=== PATIENT | female | born 1965 | race Caucasian/White ===

== ENCOUNTER 2023-01-30 13:52 | Outpatient (CLI) | payer OTHER, SELFPAY | END 2023-01-30 13:53 | disposition home or self-care (01) | LOC: AMB 01-31 11:35 | PROVIDERS: Visit Provider Internal Medicine | DX: K08.89 Other specified disorders of teeth and supporting structures (principal) ==

== ENCOUNTER 2023-12-16 14:45 | Outpatient (RCR) | payer OTHER, SELFPAY | END 2024-04-14 23:59 | disposition home or self-care (01) | PROVIDERS: Visit Provider Physician Assistant | DX: Z98.890 Other specified postprocedural states (principal); Z51.89 Encounter for other specified aftercare | CPT/HCPCS: 97110; 97162 ==

== ENCOUNTER 2025-07-08 11:54 | Emergency (ER) | payer OTHER, SELFPAY ==
--- OUTSIDE RECORDS SUMMARY | 2021-03-28 10:19 | XMS_ITS | Continuity of Care Document ---
Author Organization [facility] Address [address] [address] [place] [address] Phone Care Team Providers Care Park Maintenance Technician Name Role Phone Benjy Serna DO Unavailable Unavailable Allergies, Adverse Reactions, Alerts Substance Reaction Status Criticality tramadol Nausea/vomiting Active No Informati on Medications Medication Instructions Dosage Effective Dates (start - stop) Status Comments citalopram 20 mg tablet take 1 tablet by oral route every day 20 MG - Active Fish Oil 1,200 mg (144 mg-216 mg) capsule - Active Multi For Her 50 Plus 400 mcg-80 mcg capsule - Active Folic D3 3,775 unit-1 mg capsule take 1 capsule by oral route every day 1.00 capsule - Active esomeprazole magnesium 40 mg capsule,delayed release take 1 capsule by oral route every day 40 MG - Active Procedures Procedure Date Ugi Endo; W/bx 1/mx Level Iv-surg Path Gross/micro 21 Telephone E&M II 11-20 Min ERICK Advance Directives Directive Yes / No Effective Date File Name No Information Encounters Encounter Description Practice Location Reason(s) For Visit Diagnoses Date Provider Providers Copied on Encounter [facility], [address] [address], [place], [id number], [place] tel:[phone] [facility] No Information 1 Kareem Shell. [address], [place], [id number] , [place]. tel: [phone] [facility], [address] [address], [place], [id number], [place] tel:[phone] [facility] Hiatal herniaDysphagia, unspecifiedHeartb urnDiaphragmatic hernia without obstruction or gangrene 1 Yobani Olvera. [address], [place], [id number] , [place]. tel: [phone] Referring Provider: Referral Self, USE FOR SELF REFERRALS. Telephone E&M II 11-20 Min ERICK [facility], [address] [address], [place], [id number], [place] tel:[phone] [facility] GI Symptoms or Concerns (chief complaint) Pharyngoesophagea l dysphagiaChoking in adultNauseaGastro esophageal reflux disease, unspecified whether esophagitis present 1 Kareem Shell. [address], [place], [id number] , [place]. tel: [phone] Referring Provider: Referral Self, USE FOR SELF REFERRALS. [facility], [address] [address], [place], [id number], [place] tel:[phone] [facility] No Information 1 Jodi Pascal. [address], [place], [id number] , [place]. tel:[phone] Family History Family Member Type Diagnosis Age At Onset Son Problem (finding) Heartburn Immunizations Vaccine Date Status Comments SARS-COV-2 (COVID-19) vaccin e, mRNA, spike protein, LNP, preservative free, 100 mcg/0.5mL dose administered Note: [facility] bi-direct ional interface ; Source: Other Registry SARS-COV-2 (COVID-19) vaccin e, mRNA, spike protein, LNP, preservative free, 100 mcg/0.5mL dose administered Note: [facility] bi-direct ional interface ; Source: Other Registry tetanus toxoid, reduced diphtheria toxoid, and acellular pertussis vaccine, adsorbed administered Note: [facility] i-directional interface ; Source: Other Registry Payers Payer name Insurance type Covered libertarian ID Yolanda king(mitch) [employer] [id number] Social History Type Description Quantity Date Captured Comments Sex Female Smoking Status No Information Chief Complaint And Reason For Visit No Information Reason For Referral Reason For Referral No Information Plan Of Treatment Date Type Action Status Referral Ordered: EGD Appointment date/timeframe: 01/08/2021 ordered History Of Present Illness Encounter Date Complaint History Of Prese nt Illness GI Symptoms or Concerns This was a televisit appointment to which the patient agreed to prior to initiation of discussion. Patient was present by herself during the appointment. Total time spent with the patient including chart interview, discussion, and coordination of care was 19 minutes.This is a pleasant 55-year-old female who self-referred to [facility] for evaluation of longstanding history of acid reflux, nausea, and dysphagia with choking. Patient reports struggling with a working diagnosis of acid reflux since she was 17 years of age. She has typical symptoms of substernal burning as well as regurgitation of stomach contents. However, here in the last few months, symptoms have significantly worsened. She is now having episodes of nausea without vomiting that are worse and whenever present before. She is also having episodes of choking that can include choking on saliva as well as with eating. She feels like things are getting hung up or having difficulty in her throat area, c Functional Status Date Functional Assessmen t No Information Instructions Date Instruction Additional Infor colleen Hiatal Hernia Related to Hiata l hernia Assessments Type Assessment Date No Information Patient Care Teams Name Effective Dates (start - stop) Status Members No Information
[2025-07-08] VITALS (8 sets, daily range): BP systolic 149–186; BP diastolic 66–71; PULSE 47–52; RESP 4–35; TEMP 37; O2SAT 96–98; BMI 29.5
--- OUTSIDE RECORDS SUMMARY | 2025-07-08 11:57 | XMS_ITS | Encounter Summary ---
Author Organization [facility] Address [address] [place] [address] Care Team Providers Care Chocolatier Name Role Phone Cierra Pettit MD Primary Care Provider + Cierra Pettit MD Unavailable + Lara Dumont DPM, Podiatry /Foot and Ankle Surgery Unavailable Osman Ash MD Unavailable Lara Dumont DPM, Podiatry /Foot and Ankle Surgery Unavailable Jaime Ibarra PA-C Unavailable + 00 Cierra Pettit MD Unavailable + Jaime Ibarra PA-C Unavailable + 00 Jaime Ibarra PA-C Unavailable + 00 Cierra Pettit MD Unavailable + Jaime Ibarra PA-C Unavailable + 00 Reason for Visit * Reason Onset Date Comments Medication Question 09/18/2020 Citalopram Encounter Details Date Type Department Care Team (Late st Contact Info) Description 09/18/2020 [facility] [address] [address] [place] [address] [place] [address] Medication Question (Citalopram) Social History Tobacco Use Types Packs/Day Years Used Date Smoking Tobacco: Former Smokeless Tobacco: Never Alcohol Use Standard Drinks/Week Comments No 0 (1 standard drink = 0.6 oz pur e alcohol) PHQ-2 Answer Date Recorded PHQ-2 Score 0 08/24/2020 Comments No Sex and Gender Information Value Date Recorded Sex Assigned at Not on file Legal Sex Female 4:17 AM MINCING MACHINE OPERATOR Gender Identity Not on file Sexual Orientation Not on file COVID-19 Exposure Response Date Recorded In the last month, have you been in contact with someone who was confirmed or suspected to have Coronavirus / COVID-19? No / Unsure 08/30/2020 10:01 AM MINCING MACHINE OPERATOR documented as of this encounter Miscellaneous Notes * Telephone Encounter - Claire Byrd RN - 09/20/2020 12:56 PM CST [employer] message sent to patient. Claire Byrd RN ING MACHINE OPERATOR * Telephone Encounter - Cierra Pettit MD - 09/20/2020 10:23 AM MINCING MACHINE OPERATOR I need to see her every 6 months for med check. I can give her refills. Her wellness visit is free or I can do an Evisit in 6 months, which is very cheap. ING MACHINE OPERATOR * Telephone Encounter - Claire Byrd RN - 09/20/2020 10:08 AM CST Patient called back very unhappy about having to come back for yet another appointment in 3 months just to get her Citalopram refilled. She states that she was told by Dr. Pettit at her last phone visit on 08/24/2020 that she would refill her Citalopram for 1 year and she was good for another year.Patient states that she does not have any money and is debt with medical bills. Patient requesting refills of her Citalopram for [address] Pettit stated. Please review and advise. Please MyChart patient back. Claire Byrd RN ING MACHINE OPERATOR * Telephone Encounter - Cierra Pettit MD - 09/19/2020 11:25 AM MINCING MACHINE OPERATOR Will raise back to 40mg since I just saw her for an appt in Aug. She is due for her wellness visit in 3 months(which is a free appt), so I refilled it for 3 months. Please help set up appt if able. Thank you! ING MACHINE OPERATOR * Telephone Encounter - Khushi Mock RN - 09/18/2020 4:22 PM CST Please see my chart and advise. Khushi Mock RN on 09/18/2020 at 4:23 PM ING MACHINE OPERATOR documented in this encounter Plan of Treatment Not on file documented as of this encounter Visit Diagnoses Diagnosis Anxiety Anxiety state, unspecified documented in this encounter Additional Health Concerns Assessment Noted Time PHQ-9 Depression Total Score: 0 08/24/20 20 1:43 PM MINCING MACHINE OPERATOR documented as of this encounter Care Teams Chocolatier Relationship Specialty Start Date End Date Cierra Pettit MD PCP - General Family Practice 12/27/16 04/19/25 [place] [address] [place] [address] Assigned PCP 08/27/20 08/25/21 Lara Dumont, DPM, Podiatry/Foot and Ankle Surgery [address] [place] [address] Assigned Musculoskeletal Provider 09/03/20 12/26/20 [place] [address] [place] [address] Assigned Musculoskeletal Provider 12/27/20 02/10/21 Lara Dumont, DPM, Podiatry/Foot and Ankle Surgery [address] [place] [address] Assigned Musculoskeletal Provider 02/11/21 03/02/22 Jaime Ibarra PA-C [address] [place] [address] Assigned PCP 08/26/21 10/20/21 [place] [address] [place] [address] Assigned PCP 10/21/21 02/23/22 Jaime Ibarra PA-C [address] [place] [address] Assigned PCP 09/28/22 12/06/22 Jaime Ibarra PA-C [address] [place] [address] Assigned PCP 02/24/22 09/20/22 [place] [address] [place] [address] Assigned PCP 12/07/22 08/29/23 Jaime Ibarra PA-C [address] [place] [address] Assigned PCP 08/30/23 05/03/24 documented as of this encounter
--- OUTSIDE RECORDS SUMMARY | 2025-07-08 11:57 | XMS_ITS | Clinical Summary ---
Author Organization [place] Address [address] [place] [address] Care Team Providers Care Sludge Filtration Operator Name Role Phone Unavailable Primary Care Provider Unavailabl e Allergies Active Allergy Reactions Criticality Noted Date Comments Oxycodone Other (See Comments) 03/23/2021 vomiting Tramadol Other (See Comments) 01/24/2021 vomiting Medications vitamin D3 (CHOLECALCIFEROL ) 2000 units tablet Take 1 tablet by mouth daily Active Multiple Vitamins-Mineral s (MULTIVITAMIN GUMMIES WOMENS) CHEW Take 2 chew tab by mouth daily Active Carboxymethylcel lulose Sodium (REFRESH CELLUVISC OP) Apply 1 drop to eye every 3 hours as needed Active vitamin B complex with vitamin C (VITAMIN B COMPLEX) tablet Take 1 tablet by mouth daily Active esomeprazole (NEXIUM) [address] capsule TAKE 1 CAPSULE BY MOUTH EVERY DAY 1 Active aspirin (ASA) 325 MG EC tabletIndication s:History of total knee replacement, unspecified laterality Take 1 tablet (325 mg) by mouth daily 30 tablet 1 Active senna-docusate (SENOKOT-S/PERIC OLACE) 8.6-50 MG tabletIndication s:History of total knee replacement, unspecified laterality Take 1-2 tablets by mouth 2 times daily Take while on oral narcotics to prevent or treat constipation. 30 tablet 1 Active acetaminophen (TYLENOL) 325 MG tabletIndication s:History of total knee replacement, unspecified laterality Take 2 tablets (650 mg) by mouth every 4 hours as needed for other (mild pain) 100 tablet 1 Active HYDROmorphone (DILAUDID) 2 MG tabletIndication s:History of total knee replacement, unspecified laterality Take 1 tablet (2 mg) by mouth every 4 hours as needed for moderate to severe pain 50 tablet 1 Active ondansetron (ZOFRAN-ODT) 4 MG ODT tabIndications:S tatus post total left knee replacement Take 1 tablet (4 mg) by mouth every 6 hours as needed for nausea or vomiting 30 tablet 1 Active citalopram (CELEXA) 40 MG tabletIndication s:Anxiety Take 1 tablet (40 mg) by mouth daily 90 tablet 1 2 Active Active Problems Problem Noted Date Diagnosed Date S/P total knee arthroplasty 04/09/2021 Moderate major depression 03/19/2021 SSS (sick sinus syndrome) 03/19/2021 Gastroesophageal reflux dise ase, esophagitis presence not specified 01/27/2020 Overview (07/17/2020): IMO Regulatory Load JUL 2020 Post menopausal syndrome 01/18/2019 Lateral epicondylitis of left elbow 06/10/2018 Takotsubo cardiomyopathy 03/26/2018 Dry eyes 02/09/2018 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 11/11/2017 Anxiety 03/11/2017 Chronic pain of both knees 12/30/2016 Pain of both elbows 12/30/2016 NSTEMI (non-ST elevated myocardial infarction) Stress-induced cardiomyopathy Chest pain Sinus bradycardia Resolved Problems Problem Noted Date Diagnosed Date Resolved Date Left elbow pain 06/10/2018 03/15/2019 ACS (acute coronary syndrome) 03/18/2018 03/20/2018 Varicose veins of left lower extremity 12/30/2016 11/11/2017 Tobacco use disorder 12/30/2016 018 Immunizations Immunization Administration Dates Next Due COVID-19 Monovalent 18+ (Moderna) 11/23/2020, TDAP Vaccine (Adacel) 07/12/2013 Family History Medical History Relation Comments Anemia Daughter Anxiety Disorder Daughter Hypertension Father Coronary Artery Disease Maternal Grandfather Heart Disease Maternal Grandfather Cancer Maternal Grandmother Cancer Mother lung Hypertension Mother Relation Status Comments Brother 1 Alive Brother 2 Alive Brother 3 Alive Daughter Alive Father CEREBRAL BRAIN B LEED Maternal Grandfather Maternal Grandmother LUNG Mother LUNG Paternal Grandfather Paternal Grandmother Sister Alive Son Alive Social History Tobacco Use Types Packs/Day Years Used Date Smoking Tobacco: Former Cigarettes Smokeless Tobacco: Never Tobacco Cessation:Counseling Given: Yes Comments:quit 2016 Alcohol Use Standard Drinks/Week Comments No 0 (1 standard drink = 0.6 oz pur e alcohol) none since 2015 PHQ-2 Answer Date Recorded PHQ-2 Score 0 08/24/2020 Adolescent Education Answer Date Record ed Getting School Help Needed Not on file 07/29 Comments No Sex and Gender Information Value Date Recorded Sex Assigned at Not on file Legal Sex Female 4:17 AM MACHINE BINDING FOLDER Gender Identity Not on file Sexual Orientation Not on file Last Filed Vital Signs Vital Sign Reading Time Taken Comments Blood Pressure 133/74 05/04/2021 2:13 PM CDT Pulse 62 05/04/2021 2:13 PM CDT Temperature 36.4 C (97.5 F) 05/04/2021 2:13 PM CDT Respiratory Rate 18 05/04/2021 2:13 PM CDT Oxygen Saturation 98% 05/04/2021 2:13 PM CDT Inhaled Oxygen Concentration - - Weight 76.2 kg (168 lb) 04/09/2021 5:47 AM CDT Height 167.6 cm (5' 6) 04/09/2021 5:47 AM CDT Body Mass Index 27.12 04/09/2021 5:47 AM CDT Plan of Treatment Health Maintenance Due Date Last Done Comments CT COLONOGRAPHY 1965 FIT 1965 FLEX SIG 1965 sDNA (Cologuard) 1965 HEPATITIS B VACCINE (1 of 3 - 19+ 3-dose series) 1985 LUNG CANCER SCREENING 2016 PNEUMOCOCCAL VACCINE 50+ YEARS (1 of 1 - PCV) 2016 ZOSTER VACCINE (1 of 2) 2016 YEARLY PREVENTIVE VISIT 08/10/2019 08/10/2018, 08/04 PAP 08/04/2020 08/04/2017 MAMMO SCREENING 08/21/2020 08/21/2018 ANNUAL REVIEW OF HM ORDERS 03/19/2022 03/19/2021 DTAP/TDAP/TD VACCINE (2 - Td or Tdap) 07/12/2023 07/12/2013 LIPID 08/10/2023 08/10/2018, 06/04/2018, 08/04/2017 DIABETES SCREENING 04/10/2024 04/10/2021, 0 03/19/2021, 03/19/2021, Additional history exists COVID-19 VACCINE ( season) 2025 08/20/2021, 11/23/2020, 10/26/2020 INFLUENZA VACCINE (#1) 2025 (Declined), 08/10/2018 (Declined) ADVANCE CARE PLANNING 03/19/2026 03/19/2021 COLONOSCOPY 08/22/2027 08/22/2017, 08/22/2017 COLORECTAL CANCER SCREENING 08/22/2027 HEPATITIS C SCREENING Completed 09/14/2018 HIV SCREENING Completed 09/14/2018 HPV VACCINE (No Doses Required) Completed MENINGITIS VACCINE Aged Out No longer eligible based on patient's age to complete this topic Medical Devices Implanted Type Area Retail Analytics Manager Device Identifier Shelf Expiration Date Model / Serial / Lot Bone Cement Simplex Full Dose 6191-1-001 - [id number] Implanted:Qty: 1 on 04/09/2021 by Edd Lopez MD at [employer] Cement, Bone Left: Knee [employer] 07/12/2022 6191-1-00 1 / / [id number] Imp Comp Fem Zim Psn Ps Cmt Narrow Sz 8 Lt [id number] - [id number] Implanted:Qty: 1 on 04/09/2021 by Edd Lopez MD at [employer] Total Joint Component /Insert Left: Knee [employer] 03/12/2030 42-5000-0 64-01 / / [id number] Imp Patella Zim Knee All Saniya 32mm [id number] - [id number] Implanted:Qty: 1 on 04/09/2021 by Edd Lopez MD at [employer] Total Joint Component /Insert Left: Knee [employer] 01/23/2029 42-5400-0 00-32 / [id number] Imp Tibial Zim Psn Building Official Stm 5deg Sz El [id number] - [id number] Implanted:Qty: 1 on 04/09/2021 by Edd Lopez MD at [employer] Total Joint Component /Insert Left: Knee [employer] 09/30/2030 [id number] 71- / [id number] Persona Vivacet-E Highly Crosslinked Polyethylene Articular Surface Fixed Bearing Ps Left 10mm Implanted:Qty: 1 on 04/09/2021 by Edd Lopez MD at [employer] Left: Knee [employer]Y 10/26/2025 [id number] 007- [id number] Procedures Procedure Name Priority Date/Time Associated Diagnosis Comments GLUCOSE Timed 04/10/2021 6:10 AM CDT History of total knee replacement, unspecified laterality HIV ANTIGEN ANTIBODY COMBO Routine 09/14/2018 10:44 AM MACHINE BINDING FOLDER Screen for STD (sexually transmitted disease) HEPATITIS C ANTIBODY Routine 09/14/2018 10:44 AM MACHINE BINDING FOLDER Screen for STD (sexually transmitted disease) MA SCREENING BILATERAL W/ JIMMIE Routine 08/21/2018 10:26 AM MACHINE BINDING FOLDER Visit for screening mammogram LIPID REFLEX TO DIRECT LDL PANEL Routine 08/10/2018 12:09 PM CDT Routine general medical examination at a health care facility COLONOSCOPY Routine 08/22/2017 8:52 AM MACHINE BINDING FOLDER PAP IMAGED THIN LAYER SCREEN Routine 08/04/2017 9:38 AM CDT Screening for malignant neoplasm of cervix from Last 3 Months or Most Recently Relevant to Health Maintenance Results * Glucose (04/10/2021 6:10 AM CDT) Glucose 91 70 - 99 mg/dL 04/10/2021 6:47 AM CDT [facility] Blood 04/10/2021 6:10 AM CDT 04/10/2021 6:11 AM CDT us Edd Lopez MD LAB - BLOOD ORDERABLES F inal Result [facility] [address] [phone] * HIV Antigen Antibody Combo (09/14/2018 10:44 AM MACHINE BINDING FOLDER) HIV Antigen Antibody Combo Nonreactive NR^Nonrea ctive 09/15/2018 12:59 PM MACHINE BINDING FOLDER [facility] Comment:HIV-1 p24 Ag & HIV-1 /HIV-2 Ab Not Detected Blood specimen (specimen) 09/14/2018 10:44 AM MACHINE BINDING FOLDER 09/14/2018 10:45 AM MACHINE BINDING FOLDER Sha Rosa PA-C LAB - BLOOD ORDERABLES Magdalena l Result Performing Organization Address City/[facility]/ZIP Co de Phone Number [address] * Hepatitis C antibody (09/14/2018 10:44 AM MACHINE BINDING FOLDER) Hepatitis C Antibody Nonreactive NR^Nonre active 09/15/2018 12:59 PM MACHINE BINDING FOLDER [facility] Comment: Assay performance characteristics have not been established for newborns, infants, and children Blood specimen (specimen) 09/14/2018 10:44 AM MACHINE BINDING FOLDER 09/14/2018 10:45 AM MACHINE BINDING FOLDER Sha Rosa PA-C LAB - BLOOD ORDERABLES Magdalena l Result Performing Organization Address City/[facility]/ZIP Co de Phone Number [address] * MA Screen Bilateral w/Jimmie (08/21/2018 10:26 AM MACHINE BINDING FOLDER) Anatomical Region Laterality Modality Breast Bilateral Mammography Impressions 08/28/2018 7:28 AM MACHINE BINDING FOLDER IMPRESSION: BI-RADS CATEGORY: 1 - Negative. RECOMMENDED FOLLOW-UP: Annual Mammography. Recommend routine annual screening mammography. Exam results letter mailed to patient. SHANTANU GUTIERREZ MD Narrative 08/28/2018 7:28 AM MACHINE BINDING FOLDER SCREENING MAMMOGRAM, BILATERAL, DIGITAL w/CAD AND TOMOSYNTHESIS - 08/21/2018 10:26 AM. BREAST SYMPTOMS: No current breast complaints. COMPARISON: 02/07/2015 , 02/05/2011. BREAST DENSITY: Scattered fibroglandular densities. COMMENTS: No findings of suspicion for malignancy. Procedure Note Shantanu Gutierrez MD - 08/28/2018 SCREENING MAMMOGRAM, BILATERAL, DIGITAL w/CAD AND TOMOSYNTHESIS - 08/21/2018 10:26 AM. BREAST SYMPTOMS: No current breast complaints. COMPARISON: 02/07/2015 , 02/05/2011. BREAST DENSITY: Scattered fibroglandular densities. COMMENTS: No findings of suspicion for malignancy. IMPRESSION: BI-RADS CATEGORY: 1 - Negative. RECOMMENDED FOLLOW-UP: Annual Mammography. Recommend routine annual screening mammography. Exam results letter mailed to patient. SHANTANU GUTIERREZ MD Cierra Pettit MD IMG MAMMOGRAPHY ORDERAB LES Final Result * Lipid panel reflex to direct LDL Fasting (08/10/2018 12:09 PM CDT) Cholesterol 161 <200 mg/dL 08/11/2018 9:[address] [facility] Triglycerides 92 <150 mg/dL 08/11/2018 9:[address] [facility] Comment:Fasting specimen HDL Cholesterol 68 >49 mg/dL 8 9:[address] [facility] LDL Cholesterol Calculated 75 <100 mg/dL 08/11/2018 9:[address] [facility] Comment:Desirable: <100 mg/d l Non HDL Cholesterol 93 <130 mg/dL 08/11/2018 9:[address] [facility] Blood specimen (specimen) 08/10/2018 12:09 PM CDT 08/10/2018 12:14 PM CDT Cierra Pettit MD LAB - BLOOD ORDERABLES Final Result [facility] [address] [place] [address] * COLONOSCOPY (08/22/2017 8:52 AM MACHINE BINDING FOLDER) COLONOSCOPY [facility] Patient Name: Gaby Youngblood Procedure Date: 08/22/2017 8:52 AM Date of : 1965 Admit Type: Outpatient Age: 52 Gender: Female Attending MD: Earl Olguin MD Total Sedation Time: 25 min. Instrument Name: 132 Procedure: Colonoscopy Indications: Screening for colorectal malignant neoplasm Providers: Earl Olguin MD (Doctor) Referring MD: Cierra Pettit MD (Referring MD) Medicines: Midazolam 4 mg IV, Fentanyl 200 micrograms IV Complications: No immediate complications. Procedure: Pre-Anesthesia Assessment: - Prior to the procedure, a History and Physical was performed, and patient medications and allergies were reviewed. The patient is competent. The risks and benefits of the procedure and the sedation options and risks were discussed with the patient. All questions were answered and informed consent was obtained. Patient identification and proposed procedure were verified by the physician in the procedure room. Mental Status Examination: alert and oriented. Airway Examination: normal oropharyngeal airway and neck mobility. Respiratory Examination: clear to auscultation. CV Examination: normal. Prophylactic Antibiotics: The patient does not require prophylactic antibiotics. Prior Anticoagulants: The patient has taken no previous anticoagulant or antiplatelet agents. ASA Grade Assessment: II - A patient with mild systemic disease. After reviewing the risks and benefits, the patient was deemed in satisfactory condition to undergo the procedure. The anesthesia plan was to use moderate sedation / analgesia (conscious sedation). Immediately prior to administration of medications, the patient was re-assessed for adequacy to receive sedatives. The heart rate, respiratory rate, oxygen saturations, blood pressure, adequacy of pulmonary ventilation, and response to care were monitored throughout the procedure. The physical status of the patient was re-assessed after the procedure. After obtaining informed consent, the colonoscope was passed under direct vision. Throughout the procedure, the patient's blood pressure, pulse, and oxygen saturations were monitored continuously. The Olympus Peds Colonoscope Model #[id number]-H190L, [place]#132, SN#[id number] was introduced through the anus and advanced to the cecum, identified by appendiceal orifice and ileocecal valve. The colonoscopy was performed without difficulty. The patient tolerated the procedure well. The quality of the bowel preparation was good. Findings: The perianal and digital rectal examinations were normal. The entire examined colon appeared normal on direct and retroflexion views. Impression: - The entire examined colon is normal on direct and retroflexion views. - No specimens collected. Recommendation: - Repeat colonoscopy in 10 years for screening purposes. She will need MAC. Try eliminating bread,pasta, and pastries. Procedure Code(s): --- Professional --- G0121, Colorectal cancer screening; colonoscopy on individual not meeting criteria for high risk Diagnosis Code(s): --- Professional --- Z12.11, Encounter for screening for malignant neoplasm of colon CPT copyright 2016 [employer]. All rights reserved. The codes documented in this report are preliminary and upon oracle database analyst review may be revised to meet current compliance requirements. Electronically signed by Earl Olguin MD __ Earl Olguin MD 08/22/2017 9:30:35 AM I was physically present for the entire viewing portion of the exam. Earl Olguin MD Number of Addenda: 0 Note Initiated On: 08/22/2017 8:52 AM Procedure Date: 08/22/2017 8:52:29 AM Scope Withdrawal Time: 0 hours 6 minutes 20 seconds Total Procedure Duration: 0 hours 22 minutes 1 second Estimated Blood Loss: Scope In: 9:04:36 AM Scope Out: 9:26:37 AM RADIOLOGY RESULTS 08/22/2017 8:52 AM MACHINE BINDING FOLDER us Cierra Pettit MD PROCEDURES Edited Result - Final RADIOLOGY RESULTS * Pap imaged thin layer screen with HPV - recommended age 30 - 65 years (select HPV order below) (08/04/2017 9:38 AM CDT) PAP VIGN[facility] Report Patient Name: GABY YOUNGBLOOD MR#: [id number] Specimen #: [id number] Collected: 08/04/2017 Received: 08/05/2017 Reported: 08/06/2017 14:43 Ordering Phy(s): DESIREE RED For improved result formatting, select 'View Enhanced Report Format' under Linked Documents section. SPECIMEN/STAIN PROCESS: Pap imaged thin layer prep screening (Surepath, FocalPoint with guided screening) Pap-Cyto x 1, HPV ordered x 1 SOURCE: Cervical, endocervical Pap imaged thin layer prep screening (Surepath, FocalPoint with guided screening) SPECIMEN ADEQUACY: Satisfactory for evaluation. -Transformation zone component present. CYTOLOGIC INTERPRETATION: Negative for intraepithelial lesion or malignancy Electronically signed out by: LEATHA Montana (ASCP) Processed and screened at [facility] CLINICAL HISTORY: LMP: 03/27/2017 Irregular Bleeding, Papanicolaou Test Limitations: Cervical cytology is a screening test with limited sensitivity; regular screening is critical for cancer prevention; Pap tests are primarily effective for the diagnosis/preventi on of squamous cell carcinoma, not adenocarcinomas or other cancers. TESTING LAB LOCATION: [facility] [address] [address] COLLECTION SITE: Client: [facility] Location: [facility] (R) [facility] Cytologic material (specimen) 08/04/2017 9:38 AM CDT 08/05/2017 10:22 AM CDT Desiree Red RECOVERY ENGINEER SOFTWARE SUPPORT REPRESENTATIVE LAB - [facility] Final Result [facility] from Last 3 Months or Most Recently Relevant to Health Maintenance Insurance [facility] [employer] Advance Directives For more information, please contact: [phone] * Full Code (Latest Code Status on File) Date Activated Date Inactivated Comments 04/09/2021 10:35 AM 04/10/2021 3:58 PM All basic a nd advanced life-sustaining interventions are performed as appropriate Question Answer Comments Code status determined by: Unable to dis cuss and no AD/POLST on file; continue PREVIOUSLY ORDERED code status * Full Code Date Activated Date Inactivated Comments 01/11/2019 10:57 AM 02/17/2019 7:13 PM Question Answer Comments Code status determined by: Discussion with justin echevarria/legal decision maker * Full Code Date Activated Date Inactivated Comments 01/10/2019 4:13 PM 01/11/2019 10:57 AM Question Answer Comments Code status determined by: Other (please seamus hernandez) * Full Code Date Activated Date Inactivated Comments 03/20/2018 10:33 AM 12/15/2018 4:03 PM * Full Code Date Activated Date Inactivated Comments 03/18/2018 5:21 PM 03/20/2018 10:33 AM
--- OUTSIDE RECORDS SUMMARY | 2025-07-08 11:57 | XMS_ITS | Encounter Summary ---
Author Organization [place] Address [address] [place] [address] Care Team Providers Care Hair Boiler Name Role Phone Cierra Pettit MD Primary Care Provider Lara Dumont DPM, Podiatry /Foot and Ankle Surgery Unavailable Jaime Ibarra PA-C Unavailable + 00 Cierra Pettit MD Unavailable + Jaime Ibarra PA-C Unavailable + 00 Jaime Ibarra PA-C Unavailable + 00 Cierra Pettit MD Unavailable + Jaime Ibarra PA-C Unavailable + 00 Encounter Details Date Type Department Care Team (Late st Contact Info) Description 10[place]19[place]20[place] [facility] [place] [address] [address] [place] Social History Tobacco Use Types Packs/Day Years Used Date Smoking Tobacco: Former Cigarettes Smokeless Tobacco: Never Comments:quit 2016 Alcohol Use Standard Drinks/Week Comments No 0 (1 standard drink = 0.6 oz pur e alcohol) none since 2015 PHQ-2 Answer Date Recorded PHQ-2 Score 0 08/24/2020 Comments No Sex and Gender Information Value Date Recorded Sex Assigned at Not on file Legal Sex Female 4:17 AM OPERATIONS LIAISON Gender Identity Not on file Sexual Orientation Not on file documented as of this encounter Plan of Treatment Not on file documented as of this encounter Visit Diagnoses Not on filedocumented in this encounter Additional Health Concerns Assessment Noted Time PHQ-9 Depression Total Score: 0 08/24/20 20 1:43 PM OPERATIONS LIAISON documented as of this encounter Care Teams Hair Boiler Relationship Specialty Start Date End Date Cierra Pettit MD PCP - General Family Practice 12/27/16 04/19/25 Lara Dumont DPM, Podiatry/Foot and Ankle Surgery [address] [place] [address] Assigned Musculoskeletal Provider 02/11/21 03/02/22 Jaime Ibarra PA-C [address] [address] Assigned PCP 08/26/21 10/20/21 [place] [address] [address] [address] Assigned PCP 10/21/21 02/23/22 Jaime Ibarra PA-C [address] [address] Assigned PCP 09/28/22 12/06/22 Jaime Ibarra PA-C [address] [address] [address] Assigned PCP 02/24/22 09/20/22 [place] [address] [address] [address] Assigned PCP 12/07/22 08/29/23 Jaime Ibarra PA-C [address] [address] Assigned PCP 08/30/23 05/03/24 documented as of this encounter
--- OUTSIDE RECORDS SUMMARY | 2025-07-08 11:57 | XMS_ITS | Encounter Summary ---
Author Organization [place] Address [address] [place] [address] Care Team Providers Care Creative Perfumer Name Role Phone Cierra Pettit MD Primary Care Provider Lara DumontM, Podiatry /Foot and Ankle Surgery Unavailable Cierra Pettit MD Unavailable [phone] Jaime Ibarra PA-C Unavailable [phone] Jaime Ibarra PA-C Unavailable + 00 Cierra Pettit MD Unavailable + Jaime Ibarra PA-C Unavailable + 00 Reason for Referral * Care Coordination (Routine: Next available opening) - Closed Specialty Diagnoses / Procedures Referred By Bear t Referred To Contact Diagnoses Financial difficulty [place] [address] [place] [address] Phone: tel: fax: Referral ID Status Reason Start Date Expiration Date Visits Re quested Visits Authorized [id number] Closed 12/12/2021 12/12/2022 1 1 Question Answer Reason for Referral: Financial Support - insurance Financial Support: Insurance Clinical Staff have discussed the Care Coordination Referral with the patient and/or caregiver: No Additional Information: did send a mychart advising I will be sending you a message to see if you can help. RAL RESOURCE OFFICER Encounter Details Date Type Department Care Team (Late st Contact Info) Description 12/12/2021 MyC Medical Advice [facility] [address] [place] [address] [place] [address] [place] [address] Financial difficulty (Primary Dx); Insurance coverage problems; Anxiety Social History Tobacco Use Types Packs/Day Years [...] on file Legal Sex Female 4:17 AM NATURAL RESOURCE OFFICER Gender Identity Not on file Sexual Orientation Not on file documented as of this encounter Miscellaneous Notes * Telephone Encounter - Cierra Pettit MD - 12/14/2021 12:13 PM NATURAL RESOURCE OFFICER Will refill the 40mg, reviewed PHQ-9 and she is doing well, needs appt in 6 months, please help schedule RAL RESOURCE OFFICER documented in this encounter Plan of Treatment Scheduled Referrals Name Type Priority Associated Diagnoses Order Schedule Primary Care - Care Coordination Referral Referral Routine: Next available opening Financial difficulty Insurance coverage problems Expected: 12/13/2021 (Approximate), Expires: 12/12/2022 documented as of this encounter Visit Diagnoses Diagnosis Financial difficulty- Primary Inadequate material resources Insurance coverage problems Anxiety Anxiety state, unspecified documented in this encounter Additional Health Concerns Assessment Noted Time PHQ-9 Depression Total Score: 0 12/14/19 22 7:03 AM NATURAL RESOURCE OFFICER documented as of this encounter Care Teams Creative Perfumer Relationship Specialty Start Date End Date Cierra Pettit MD PCP - General Family Practice 12/27/16 04/19/25 Lara Dumont DPM, Podiatry/Foot and Ankle Surgery [address] [address] [address] Assigned Musculoskeletal Provider 02/11/21 03/02/22 [place] [address] [place] [address] Assigned PCP 10/21/21 02/23/22 Jaime Ibarra PA-C [address] [place] [address] Assigned PCP 09/28/22 12/06/22 Jaime Ibarra PA-C [address] [place] [address] Assigned PCP 02/24/22 09/20/22 [place] [address] [place] [address] Assigned PCP 12/07/22 08/29/23 Jaime Ibarra PA-C [address] [place] [address] Assigned PCP 08/30/23 05/03/24 documented as of this encounter
--- OUTSIDE RECORDS SUMMARY | 2025-07-08 11:57 | XMS_ITS | Patient Health Record ---
Author Organization [facility] Address [address] [place] [address] Care Team Providers Care Performance Improvement Analyst Name Role Phone Dominga Pettit Primary Care Provider JODY Amanda Unavailable [phone] Reason For Referral No Information Medications Medication SIG (Take, Route, Fr equency, Duration) Notes Start Date End Date Status Citalopram Hydrobromide Active buPROPion HCl ER (XL) Active Vitamin D Active Social History Tobacco Use: Social History Observation Description Date Details (start date - stop date) Former Smoker NA - NA Social History Alcohol Use: Social Info Question Answer Notes Recreational drugs Have you used drugs other than those for medical reasons in the past 12 months? No : Social Info Question Answer Notes How often do you consume alcohol? Answer: never Tobacco Use: Social Info Question Answer Notes Tobacco use/smoking Are you a former smoker Problems Problem Type SNOMED Code ICD Code Onset Dates Problem Status W/U Status Risk Notes Problem Dizziness (389075005) Dizziness (R42) Active confirmed Problem Deviated nasal septum (734344049) Deviated septum (J34.2) Active confirmed Problem Pruritic disorders (583089916) Ear itching (L29.9) Active confirmed Problem Hypertrophy of nasal turbinates (disorder) (15540932) Nasal turbinate hypertrophy (J34.3) Active confirmed Problem Impacted cerumen (48721252) Impacted cerumen, unspecified laterality (H61.20) Active confirmed Problem History of acoustic neuroma (299575539163064 ) History of acoustic neuroma (Z86.018) Active confirmed Problem Impacted cerumen (08971627) Impacted cerumen, right ear (H61.21) Active confirmed Problem Tinnitus (13496284) Tinnitus, right ear (H93.11) Active confirmed Plan Of Treatment No Information Insurance Providers Payer Name Payer Address Payer Phone Subscriber Number Group Number Insured Name Patient Relationship to Insured Coverage Start Date Coverage End Date [employer] Individual [employer] Family Plan [address] [facility] [place], [place] [id number] Gaby Youngblood Self - patient is the insured 9 Medical (General) History Surgical History Surgery Date(Month/Year) Brain 2011 Kneck 2014 Knee 2005
--- OUTSIDE RECORDS SUMMARY | 2025-07-08 11:57 | XMS_ITS | Encounter Summary ---
Author Organization [facility] Address [address] [place] [address] Care Team Providers Care Relay Checker Name Role Phone Cierra Pettit MD Primary Care Provider + Cierra Pettit MD Unavailable + Sha Rosa PA-C Unavailable + Mervin Vance MD Unavailable + Desiree Lopez APRN ASSEMBLY LINE WORKER Unavailable + Cliff Richards MD Unavailable [phone] Pool Anton MD Unavailable + Osman Ash MD Unavailable Cierra Pettit MD Unavailable + Lara Dumont DPM, Podiatry /Foot and Ankle Surgery Unavailable Osman Ash MD Unavailable Lara Dumont DPM, Podiatry /Foot and Ankle Surgery Unavailable Jaime Ibarra PA-C Unavailable + Cierra Pettit MD Unavailable + Jaime Ibarra PA-C Unavailable [phone] Jaime Ibarra PA-C Unavailable [phone] Cierra Pettit MD Unavailable [phone] Jaime Ibarra PA-C Unavailable [phone] Reason for Visit * Reason Onset Date Comments Refill Request 01/14/2019 citalopram (ROSELYN XA) 20 MG tablet Encounter Details Date Type Department Care Team (Late st Contact Info) Description 01/14/[address], [address] [place] [address] [place] [address] [place] [address] Refill Request (citalopram (CELEXA) 20 MG tablet) Social History Tobacco Use Types Packs/Day Years Used Date Smoking Tobacco: Former Smokeless Tobacco: Never Alcohol Use Standard Drinks/Week Comments No 0 (1 standard drink = 0.6 oz pur e alcohol) PHQ-2 Answer Date Recorded PHQ-2 Score 0 10/21/2018 Comments No Sex and Gender Information Value Date Recorded Sex Assigned at Not on file Legal 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 Will give refill to get her through. Claire Byrd RN * Telephone Encounter - Natasha Holcomb - 01/14/2019 12:46 PM CDT Requested Prescriptions Pending Prescriptions Disp Refills ??? citalopram (CELEXA) 20 MG tablet [Pharmacy Med Name: CITALOPRAM HBR 20 MG TABLET] Last Written Prescription Date: 08/10/2018 Last Fill Quantity: 90 tablet, # refills: 1 Last office visit: 09/14/2018 with prescribing provider: Sha Rosa PA-C Future Office Visit: Next 5 appointments (look out 90 days) Jan 18, 2019 10:00 AM CDT Office Visit with Mervin Vance MD [facility] ([facility]) [address] [place] [address], [facility] [address] [facility] [id number] 90 tablet 1 Sig: TAKE 1 TABLET BY MOUTH EVERY DAY SSRIs Protocol Passed - 01/14/2019 11:58 AM Passed - Recent (12 mo) or future (30 days) visit within the authorizing provider's specialty Patient had office visit in the last 12 months or has a visit in the next 30 days with authorizing provider or within the authorizing provider's specialty. See Patient Info tab in inbasket, or Choose Columns in Meds & Orders section of the refill encounter. Passed - Medication is active on med list Passed - Patient is age 18 or older Passed - No active on record Passed - No positive test in last 12 months documented in this encounter Plan of Treatment Not on file documented as of this encounter Visit Diagnoses Diagnosis Anxiety Anxiety state, unspecified documented in this encounter Additional Health Concerns Assessment Noted Time PHQ-9 Depression Total Score: 0 06/18/20 18 9:25 AM CDT documented as of this encounter Care Teams Relay Checker Relationship Specialty Start Date End Date Cierra Pettit MD PCP - General Family Practice 12/27/16 04/19/25 [place] [address] [address] [address] Assigned PCP 12/08/16 06/26/19 Sha Rosa PA-C [address] [address] Assigned PCP 06/27/19 02/12/20 [place] [address] [place] [address] Assigned PCP 02/13/20 03/18/20 Desiree Lopez APRN CNP [address] [place] [address] Assigned PCP 03/19/20 08/26/20 [place] [address] [place] [address] Assigned Sleep Provider 08/04/2008/26 Pool Anton MD [address] [facility] [address] [place] [address] Assigned Heart and Vascular Provider 08/04/20 08/26/20 [place] [address] [place] [address] Assigned Musculoskeletal Provider 08/04/20 09/02/20 [place] [address] [place] [address] Assigned PCP 08/27/20 08/25/21 Lara Dumont, DPM, Podiatry/Foot and Ankle Surgery [address] [place] [address] Assigned Musculoskeletal Provider 09/03/20 12/26/20 [place] [address] [place] [address] Assigned Musculoskeletal Provider 12/27/20 02/10/21 Lara Dumont DPM, Podiatry/Foot and Ankle Surgery [address] [address] Assigned Musculoskeletal Provider 02/11/21 03/02/22 Jaime Ibarra PA-C [address] [place] [address] Assigned PCP 08/26/21 10/20/21 [place] [address] [place] [address] Assigned PCP 10/21/21 02/23/22 Jaime Ibarra PA-C [address] [place] [address] Assigned PCP 09/28/22 12/06/22 Jaime Ibarra PA-C [address] [address] [place] [place] [address] Assigned PCP 02/24/22 09/20/22 [place] [address] [place] [address] Assigned PCP 12/07/22 08/29/23 Jaime Ibarra PA-C [address] [place] [address] Assigned PCP 08/30/23 05/03/24 documented as of this encounter
--- OUTSIDE RECORDS SUMMARY | 2025-07-08 11:57 | XMS_ITS | Encounter Summary ---
Author Organization [facility] Address [address] [place] [address] Care Team Providers Care Tmd Teacher Assistant Name Role Phone Cierra Pettit MD Primary Care Provider Lara DumontM, Podiatry /Foot and Ankle Surgery Unavailable Cierra Pettit MD Unavailable [phone] Jaime Ibarra PA-C Unavailable [phone] Jaime Ibarra PA-C Unavailable [phone] Cierra Pettit MD Unavailable [phone] Jaime Ibarra PA-C Unavailable [phone] Encounter Details Date Type Department Care Team (Late st Contact Info) Description 12/04/2021 [facility] Medical Advice [address] [address] Anneliese Kohli Social History Tobacco Use Types Packs/Day Years Used Date Smoking Tobacco: Former Cigarettes Smokeless Tobacco: Never Comments:quit 2016 Alcohol Use Standard Drinks/Week Comments No 0 (1 standard drink = 0.6 oz pur e alcohol) none since 2016 PHQ-2 Answer Date Recorded PHQ-2 Score 0 08/24/2020 Comments No Sex and Gender Information Value Date Recorded Sex Assigned at Not on file Legal 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 Female 4:17 AM POT LINER Gender Identity Not on file Sexual Orientation Not on file documented as of this encounter Plan of Treatment Not on file documented as of this encounter Visit Diagnoses Not on filedocumented in this encounter Additional Health Concerns Assessment Noted Time PHQ-9 Depression Total Score: 0 08/24/20 20 1:43 PM POT LINER documented as of this encounter Care Teams Tmd Teacher Assistant Relationship Specialty Start Date End Date Cierra Pettit MD PCP - General Family Practice 12/27/16 04/19/25 Lara Dumont, DPM, Podiatry/Foot and Ankle Surgery [address] [address] Assigned Musculoskeletal Provider 02/11/21 03/02/22 [place] [address] [address] [address] Assigned PCP 10/21/21 02/23/22 Jaime Ibarra PA-C [address] [address] Assigned PCP 09/28/22 12/06/22 Jaime Ibarra PA-C [address] [address] [address] Assigned PCP 02/24/22 09/20/22 [place] [address] [address] [address] Assigned PCP 12/07/22 08/29/23 Jaime Ibarra PA-C [address] [address] Assigned PCP 08/30/23 05/03/24 documented as of this encounter
--- OUTSIDE RECORDS SUMMARY | 2025-07-08 11:57 | XMS_ITS | Encounter Summary ---
Author Organization [facility] Address [address] [place] [address] Care Team Providers Care Product Safety Specialist Name Role Phone Cierra Pettit MD Primary Care Provider Lara Dumont DPM, Podiatry /Foot and Ankle Surgery Unavailable Cierra Pettit MD Unavailable [phone] Jaime Ibarra PA-C Unavailable [phone] Jaime Ibarra PA-C Unavailable [phone] Cierra Pettit MD Unavailable [phone] Jaime Ibarra PA-C Unavailable [phone] Encounter Details Date Type Department Care Team (Late st Contact Info) Description 12/12/2021 [facility] Medical Advice [address] [address] Caridad Turner, RN Social History Tobacco Use Types Packs/Day Years [...] on file 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 Gender Identity Not on file Sexual Orientation Not on file documented as of this encounter Plan of Treatment Not on file documented as of this encounter Visit Diagnoses Not on filedocumented in this encounter Additional Health Concerns Assessment Noted Time PHQ-9 Depression Total Score: 0 12/14/19 7:03 AM PUTTYING AND CALKING SUPERVISOR documented as of this encounter Care Teams Product Safety Specialist Relationship Specialty Start Date End Date Cierra Pettit MD PCP - General Family Practice 12/27/16 04/19/25 Lara Dumont, DPM, Podiatry/Foot and Ankle Surgery [address] [address] Assigned Musculoskeletal Provider 02/11/21 03/02/22 [place] [address] [address] [address] Assigned PCP 10/21/21 02/23/22 Jaime Ibarra PA-C [address] [address] Assigned PCP 09/28/22 12/06/22 Jaime Ibarra PA-C [address] [address] Assigned PCP 02/24/22 09/20/22 [place] [address] [address] [address] Assigned PCP 12/07/22 08/29/23 Jaime Ibarra PA-C [address] [address] [address] Assigned PCP 08/30/23 05/03/24 documented as of this encounter
--- OUTSIDE RECORDS SUMMARY | 2025-07-08 11:57 | XMS_ITS | Encounter Summary ---
Author Organization [facility] Address [address] [place] [address] Care Team Providers Care Senior Bioinformatics Specialist Name Role Phone Cierra Pettit MD Primary Care Provider Jaime Ibarra PA-C Unavailable [phone] Cierra Pettit MD Unavailable [phone] Jaime Ibarra PA-C Unavailable [phone] Encounter Details Date Type Department Care Team (Late st Contact Info) Description 10/14/2022 [facility] Medical Advice [address] [address] Aida Narayan Social History Tobacco Use Types Packs/Day Years [...] on file Legal Sex Female 4:17 AM DISPLAY DESIGNER OUTSIDE Gender Identity Not on file Sexual Orientation Not on file documented as of this encounter Plan of Treatment Not on file documented as of this encounter Visit Diagnoses Not on filedocumented in this encounter Additional Health Concerns Assessment Noted Time PHQ-9 Depression Total Score: 0 12/14/19 22 7:03 AM DISPLAY DESIGNER OUTSIDE documented as of this encounter Care Teams Senior Bioinformatics Specialist Relationship Specialty Start Date End Date Cierra Pettit MD PCP - General Family Practice 12/27/16 04/19/25 Jaime Ibarra PA-C [address] [address] Assigned PCP 09/28/22 12/06/22 [place] [address] [address] [address] Assigned PCP 12/07/22 08/29/23 Jaime Ibarra PA-C [address] [address] Assigned PCP 08/30/23 05/03/24 documented as of this encounter
--- OUTSIDE RECORDS SUMMARY | 2025-07-08 11:58 | XMS_ITS | Encounter Summary ---
Author Organization [facility] Address [address] [place] [address] Care Team Providers Care Contract Loader Name Role Phone Cierra Pettit MD Primary Care Provider + Desiree Lopez APRN BODY DIE MAKER Unavailable + Cliff Richards MD Unavailable [phone] Pool Anton MD Unavailable + Osman [...] MD Unavailable + Jaime Ibarra PA-C Unavailable [phone] Reason for Visit * Reason Comments Medication Refill Encounter Details Date Type Department Care Team (Late st Contact Info) Description 06/28/[address], [address] [place] [address] Sha Rosa PA-C [address] [facility] [place] [address] Medication Refill Social History Tobacco Use Types Packs/Day Years Used Date Smoking Tobacco: Former Smokeless Tobacco: Never Alcohol Use Standard Drinks/Week Comments No 0 (1 standard drink = 0.6 oz pur e alcohol) PHQ-2 Answer Date Recorded PHQ-2 Score 0 01/27/2020 Comments No Sex and Gender Information Value Date Recorded Sex Assigned at Not on file 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 Gender Identity Not on file Sexual Orientation Not on file documented as of this encounter Miscellaneous Notes * Telephone Encounter - Va Morin MA - 06/29/2020 5:34 PM CDT Pt is calling back tomorrow to make a appointment Va HENSON * Telephone Encounter - Josefina Bassett RN - 06/29/2020 8:21 AM CDT Routing refill request to provider for review/approval because: Drug interaction warning Josefina Bassett RN on 06/29/2020 at 8:21 AM documented in this encounter Plan of Treatment Not on file documented as of this encounter Visit Diagnoses Diagnosis Anxiety Anxiety state, unspecified documented in this encounter Additional Health Concerns Assessment Noted Time PHQ-9 Depression Total Score: 3 01/27/20 20 10:44 AM CDT documented as of this encounter Care Teams Contract Loader Relationship Specialty Start Date End Date Cierra Pettit MD PCP - General Family Practice 12/27/16 04/19/25 Desiree Lopez APRN CNP [address] [place] [address] Assigned PCP 03/19/20 08/26/20 [place] [address] [address] [address] Assigned Sleep Provider 08/04/2008/26 Pool Anton MD [address] [facility] [address] [place] [address] Assigned Heart and Vascular Provider 08/04/20 08/26/20 [place] [address] [address] [place] [address] Assigned Musculoskeletal Provider 08/04/20 09/02/20 [place] [address] [place] [address] Assigned PCP 08/27/20 08/25/21 Lara Dumont DPM, Podiatry/Foot and Ankle Surgery [address] [facility] [address] [address] Assigned Musculoskeletal Provider 09/03/20 12/26/20 [place] [address] [address] Assigned Musculoskeletal Provider 12/27/20 02/10/21 Tim, Lara J, DPM, Podiatry/Foot and Ankle Surgery [address] [place], [place] [address] Assigned Musculoskeletal Provider 02/11/21 03/02/22 Jaime Ibarra PA-C [address] [place] [address] Assigned PCP 08/26/21 10/20/21 [place] [address] [place] [address] Assigned PCP 10/21/21 02/23/22 Jaime Ibarra PA-C [address] [place] [address] Assigned PCP 09/28/22 12/06/22 Jaime Ibarra PA-C [address] [place] [address] Assigned PCP 02/24/22 09/20/22 [place] [address] [address] [address] Assigned PCP 12/07/22 08/29/23 Jaime Ibarra PA-C [address] [place] [address] Assigned PCP 08/30/23 05/03/24 documented as of this encounter
--- OUTSIDE RECORDS SUMMARY | 2025-07-08 11:58 | XMS_ITS | Clinical Summary ---
Author Organization [facility] Address [address] [place] [id number] Care Team Providers Care Metal Furnace Operator Name Role Phone Paulina Steel Primary Care Provider [phone] Allergies Active Allergy Reactions Criticality Noted Date Comments Oxycodone Other - Describe In Comment Field vomiting Tramadol Other - Describe In Comment Field vomiting Medications [id number]- Fish Oil (Fish OiL) 1,000 mg (120 mg-180 mg) cap Take 2 Capsules by mouth at bedtime. Active pantoprazole 40 mg delayed-release tabletIndication s:Chronic GERD Take 1 Tablet (40 mg) by mouth once daily. 90 Tablet 3 5 Active famotidine 40 mg tabletIndication s:Hiatal hernia,Chronic GERD Take 1 Tablet (40 mg) by mouth two times daily. 180 Tablet 3 5 Active vitamin B complex (B COMPLEX 1 ORAL) Take by mouth. Active loratadine (CLARITIN) 10 mg tablet Take 10 mg by mouth once daily. Active citalopram (CELEXA) 40 mg tabletIndication s:MATHEW (generalized anxiety disorder) Take 1 Tablet (40 mg) by mouth once daily in the morning. 90 Tablet 3 5 Active lisinopriL (PRINIVIL; ZESTRIL) 10 mg tabletIndication s:Primary hypertension Take 1 Tablet (10 mg) by mouth once daily. 30 Tablet 5 Active citalopram (CELEXA) 40 mg tabletIndication s:MAHTEW (generalized anxiety disorder) Take 1 Tablet (40 mg) by mouth once daily in the morning. 8 Tablet 06/28/20 25 Discontinu ed(Reorder (E-cancel not sent)) Active Problems Problem Noted Date Diagnosed Date Hiatal hernia 04/04/2025 Overview (04/04/2025): Hiatal hernia (1cm) Chronic GERD 04/04/2025 S/P arthroscopy of left shoulder 04/20/2024 Acute bursitis of left shoulder 10/01/2023 Superior labrum anterior-to- posterior (SLAP) tear of left shoulder 08/18/2023 Tendonitis of long head of biceps brachii of lef t shoulder 08/18/2023 SSS (sick sinus syndrome) 12/25/2022 Assessment & Plan (12/25/2022 12:40 PM CDT): Chart update only. 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 Encounters Date Type Department Care Team Description 07/08/2025 10:40 AM CDT Nurse/Clinic Staff Only [address] [id number] Blood Pressure 07/08/2025 Nurse Triage [address] [address] Paulina Steel PA Chest Pain 07/08/2025 Travel 07/07/[address] [address] Paulina Steel PA Questions 06/28/2025 10:20 AM CDT Office Visit [address] [address] Paulina Steel PA Physical (59 yr/) 06/28/2025 Travel 05/13/[address] [address] Paulina Steel PA Refill Request 05/01/[address] [address] Paulina Steel PA Refill Request (Citalopram) from Last 3 Months Immunizations Immunization Administration Dates Next Due COVID-19 vaccine (Moderna 10 0mcg/0.5mL) LETICIA MACHUCA 08/20/2021,11/23/2020,10/26/2020 Tdap 07/12/2013 Family History Medical History Relation Name Comments Hypertension Father Cancer Mother Lung Hypertension Mother Relation Name Status Comments Father Mother Social History Tobacco Use Types Packs/Day Years Used Date Smoking Tobacco: Former Cigarettes Q uit: 05/14/2017 Smokeless Tobacco: Never Tobacco Cessation:Counseling Given: No Alcohol Use Standard Drinks/Week Comments Not Currently 0 (1 standard drink = 0.6 oz pur e alcohol) sober since 07/26/2016, PHQ-2 Answer Date Recorded PHQ-2 TOTAL SCORE 0 12/16/2022 Social Connections Answer Date Recorded Do you often feel lonely or isolated from those around you? 0 09/13/2024 Financial Resource Strain Answer Date R ecorded Difficulty of Paying Living Expenses 3 09/13/2024 Difficulty of Paying Living Expenses Not on file 09/13/2024 Food Insecurity Answer Date Recorded Do you worry your food will run out before you are able to buy more? 1 09/13/2024 Transportation Needs Answer Date Record ed Does lack of transportation keep you from medica l appointments? 1 09/13/2024 Does lack of transportation keep you from work, meetings or getting things that you need? 1 09/13/2024 Housing Stability Answer Date Recorded What is your housing situation today? 1 09/13/2024 Interpersonal Safety Answer Date Record ed Are you being hit, kicked, p ushed or yelled at (see row info)? No 01/10/2025 Interpersonal Safety Abuse 12 - 18 Not on file 01/10/2025 Interpersonal Safety Ambulatory Vulnerability No t on file 01/10/2025 Utilities Answer Date Recorded Do you have trouble paying f or utilities (for example, heat, electricity, water, phone)? 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 Not on file Not on file Not on f ile Not on file Not on file Not on file Not on file Obstetrics History Para Term AB IAB SAB Ectopic Multiple Livin g Live Births 4 2 2 2 2 2 2 Date Outcome GA Total Labor Labor/2nd/3rd Weight Sex Type Anes PTL Susan A1 A5 Name Clin SAB 1987 SAB 07/14 Term M Vag Living Umer Pettit 08/01 Term F Vag Living Peg Morocho Last Filed Vital Signs Vital Sign Reading Time Taken Comments Blood Pressure 160/69 07/08/2025 11:00 AM CDT BP tower in RN room Pulse 56 07/08/2025 10:58 AM CDT Temperature 36.6 C (97.8 F) 01/10/2025 12:42 PM CDT Respiratory Rate 18 01/10/2025 12:4 2 PM CDT Oxygen Saturation 97% 07/08/2025 10: 53 AM CDT Inhaled Oxygen Concentration - - Weight 84.3 kg (185 lb 12.8 oz) 06/28/2025 10:24 AM CDT Height 169 cm (5' 6.54) 06/28/2025 10: 24 AM CDT Body Mass Index 29.51 06/28/2025 10:24 AM CDT Plan of Treatment Upcoming Encounters Date Type Department Care Team (Late st Contact Info) Description 07/18/2025 10:20 AM CDT Office Visit [facility] [address] [facility] [place] [address] Paulina Steel PA [address] [place] [address] 07/18/2025 11:00 AM CDT Ancillary Procedure [facility] [address] [facility] [place] [address] 07/21/2025 10:15 AM CDT Orders Only [facility] [place] [facility] [address] Lab, [place] [facility] Maintenance Due Date Last Done Comments HIV for age 15-65 1981 Hepatitis C screening for ag e 18-79 1984 Hepatitis B series for 19+ ( 1 of 3 - 19+ 3-dose series) 1985 Pneumococcal series for age 50+ (1 of 2 - PCV) 1985 Lipids for age 45-75 2011 Zoster (shingles) series for age 50+ (1 of 2) 2016 Mammogram for age 45-75 11/10/2016 11/10/19 16 (Completed outside of [facility]) Pap test for age 21-65 11/10/2018 6 (Completed outside of [facility]) Tetanus booster 07/12/2023 07/12/2013 Depression screening for age 12+ 12/17/2023 12/17/19 23, 12/16/2022 COVID-19 vaccine series (2024- season) 2025 08/20/2021, 11/23/2020, 10/26/2020 Influenza Vaccine (#1) 2025 BMI (ht and wt on same day) for age 18+ 06/28/2026 06/28/2025, 09/24/2023, 08/18/2023, Additional history exists Colonoscopy through age 75 08/22/202708/22 (Verified in Care Everywhere or Patient Record) RSV vaccine for adults or (1 - 1-dose 75+ series) 2041 Medical Devices Implanted Type Area Blasting Machine Operator Device Identifier Shelf Expiration Date Model / Serial / Lot Sys Ancr Sut 4.75mm Biocomposite - [id number] Implanted:Qty: 1 on 10/01/2023 by Wilver Gee MD at [facility] Left: Shoulder [employer] 01/10/2027 [id number] / / [id number] Insurance [facility] INDIVIDUAL AND FAMILY PLANS [facility] Member Subscriber Plan / Payer (Ef fective 2023-Present) Name:Gaby Youngblood Relation to Subscriber:Employee Name:[employer] Date of :1999 (Home) Address: [address] [place] [address] Payer ID:Not on file Group ID:Not on file Type:Not on file Address: [address] INDIVIDUAL AND FAMILY PLANS Advance Directives * Full Code (Latest Code Status on File) Date Activated Date Inactivated Comments 10/01/2023 10:39 AM 10/01/2023 7:48 PM Question Answer Comments Code Status Discussion: Unable to Assess Preferences, Provider to review later Care Teams Metal Furnace Operator Relationship Specialty Start Date End Date Paulina Steel PA [address] [place] [address] PCP - General Physician Upper Trimmer 06/28/25
--- NOTE | 2025-07-08 12:12 | ED.CHESTPAIN ---
HPI - Chest Pain General Chief Complaint: Hypertension Stated Complaint: SOB, High BP, tightness in chest Time Seen by Provider: 07/08/25 11:55 History of Present Illness HPI narrative: Patient is a 59-year-old woman who has chronic hypertension. She has recently started on a small dose of lisinopril at 10 mg 1 week ago. She [facility] where her blood pressure was in the 180 systolic range she was having anterior chest pain since last night. Patient describes no nausea no vomiting no fevers no chills no shortness of breath. Patient states she feels quite anxious. Patient has had a brain tumor resected in the past but no other neurologic symptoms recently. Related Data Home Medications ?Medication ?Instructions ?Recorded ?Confirmed citalopram 40 mg tablet 40 mg PO 12/29/23 04/07/25 famotidine 40 mg tablet 40 mg PO BID 07/08/25 07/08/25 lisinopril 10 mg tablet 10 mg PO DAILY 07/08/25 07/08/25 Previous Rx's ?Medication ?Instructions ?Recorded azithromycin 250 mg tablet See Rx Instructions PO .COMPLEX #6 04/07/25 tabs Allergies Allergy/AdvReac Type Severity Reaction Status Date / Time No Known Drug Allergies Allergy Verified 07/08/25 12:04 Review of Systems Status of ROS Reports: 10 or more systems reviewed and unremarkable except as noted in History and below Exam Narrative Exam Narrative: EXAM GENERAL: Patient appears comfortable and well. EYES: No scleral icterus. LYMPH: No supraclavicular or cervical lymphadenopathy. SKIN: Visible skin seen during exam normal or with benign process only. EXT: No dependent lower extremity pedal edema. HEART: Regular rate and rhythm with no murmurs, rubs, or gallops. LUNGS: Clear to auscultation bilaterally with no crackles or wheezes. ABD: Soft, non tender, non distended. PSYCH: Good eye contact, speech is not pressured. Neurologic chronic left-sided facial droop noted. Const Vital Signs, click to edit/add: Vital Signs - 24 hr 07/08/25 11:57 07/08/25 12:16 07/08/25 12:30 Temperature 98.6 F Pulse Rate 50 L Pulse Rate [Right Pulse Oximeter] 50 L Respiratory Rate 18 10 L 35 H Blood Pressure Blood Pressure [Right Upper Arm] 186/66 H Pulse Oximetry 97 96 Oxygen Delivery Method Room Air 07/08/25 12:45 07/08/25 13:00 07/08/25 13:02 Temperature Pulse Rate 52 L 48 L 48 L Pulse Rate [Right Pulse Oximeter] Respiratory Rate 26 H 14 4 L Blood Pressure 149/71 H Blood Pressure [Right Upper Arm] Pulse Oximetry 97 97 97 Oxygen Delivery Method Course Course ED Course: Patient seen examined. Troponin CBC comprehensive metabolic panel D-dimer pending. Chest x-ray pending. Vital Signs Vital signs: Initial Vital Signs Temperature 98.6 F 07/08/25 11:57 Temperature Source Temporal Artery Scan 07/08/25 11:57 Pulse Rate 50 L 07/08/25 11:57 Pulse Rhythm Regular 07/08/25 11:57 Pulse Strength 3+ Normal 07/08/25 11:57 Respiratory Rate 18 07/08/25 11:57 Blood Pressure 186/66 H 07/08/25 11:57 Blood Pressure Mean 106 H 07/08/25 11:57 Blood Pressure Position Sitting 07/08/25 11:57 Pulse Oximetry 97 07/08/25 11:57 Oxygen Delivery Method Room Air 07/08/25 11:57 Vital Signs Temperature 98.6 F 07/08/25 11:57 Pulse Rate 50 L 07/08/25 11:57 Respiratory Rate 18 07/08/25 11:57 Blood Pressure 186/66 H 07/08/25 11:57 Pulse Oximetry 97 07/08/25 11:57 Oxygen Delivery Method Room Air 07/08/25 11:57 Temperature 98.6 F 07/08/25 11:57 Pulse Rate 48 L 07/08/25 13:02 Respiratory Rate 4 L 07/08/25 13:02 Blood Pressure 149/71 H 07/08/25 13:02 Pulse Oximetry 97 07/08/25 13:02 Oxygen Delivery Method Room Air 07/08/25 11:57 MDM - Chest Pain MDM Narrative Medical decision making narrative: Patient is a 59-year-old woman presents with 6-8 hours of chest pain with normal troponin normal EKG normal D-dimer electrolytes CBC unremarkable. Chest x-ray unremarkable upon my review. This time the patient was recently started on lisinopri 10 mg daily and I think it is premature to change her medication at this time. He is otherwise asymptomatic and feeling well. I would to the differential diagnosis would include but not limited to acute myocardial infarction pericarditis pulmonary embolism pneumonia chest wall pain. We will have her continue current medication and follow-up with her primary physician in the next 14 days. Lab Data Labs: Lab Results 07/08/25 Range/Units 12:25 WBC 6.84 (4.50-11.00) K/uL RBC 4.07 (4.00-5.20) m/uL Hgb 12.5 (12.0-16.0) gm/dL Hct 38.4 (33.0-51.0) % MCV 94 (80-100) fL MCH 31 (26-34) pg MCHC 33 (32-36) gm/dL RDW Coeff of Arielle 12.4 (11.5-15.5) % Plt Count 259 (140-440) K/uL Neut % (Auto) 62.8 (42.0-72.0) % Lymph % (Auto) 26.9 (20-44) % [place] % (Auto) 7.9 (0.0-11.0) % Eos % (Auto) 1.6 (0.0-7.0) % Baso % (Auto) 0.4 (0.0-3.0) % Neut # (Auto) 4.29 (1.7-7.0) K/uL Lymph # (Auto) 1.84 (0.90-2.90) K/uL [place] # (Auto) 0.50 (0.00-0.90) K/UL Eos # (Auto) 0.11 (0.00-0.50) K/uL Baso # (Auto) 0.03 (0.00-0.30) K/uL Abs Immat Gran (auto) 0.03 (0.00-0.30) K/uL Imm/Tot Granulo (auto) 0.4 % D-Dimer Quant (PE/DVT) < 0.25 (0.00-0.50) ug/ml Sodium 138 (135-149) mmol/L Potassium 4.5 (3.6-5.1) mmol/L Chloride 102 (96-114) mmol/L Carbon Dioxide 31 (20-32) mmol/L Anion Gap 5 L (7-15) mEq/L BUN 14 (7-30) mg/dL Creatinine 0.7 (0.5-1.5) mg/dL Estimated Creat Clear 82.01 Estimated GFR 100 ml/min Glucose 111 (60-115) mg/dL Calcium 9.1 (8.4-10.6) mg/dL Total Bilirubin 0.6 (0.1-1.5) mg/dL AST 30 (12-35) U/L ALT 25 (4-35) U/L Alkaline Phosphatase 121 (40-150) U/L Troponin I < 0.01 (0.01-0.04) ng/mL Total Protein 7.1 (6.0-8.3) g/dL Albumin 4.3 (3.3-5.0) g/dL Discharge Plan Discharge Clinical Impression: Chest pain Patient Disposition: Home, Self-Care Condition: Stable Instructions: Chest Pain (ED) Additional Instructions: Continue current medication Follow-up with your doctor as needed. Activity Level: No Restrictions Discharge Diet: Regular Prescriptions: No Action citalopram 40 mg tablet 40 mg PO azithromycin 250 mg tablet See Rx Instructions PO .COMPLEX Qty: 6 0RF Rx Instructions: For 250 mg dose pack: take 500 mg today (day 1), then 250 mg for 4 days (days 2-5) PO famotidine 40 mg tablet 40 mg PO BID lisinopril 10 mg tablet 10 mg PO DAILY Follow Up/Referrals: Provider,Not a Local [Primary Care Provider, Family Practice] Stand Alone Forms: [facility] Info Instructions
--- NOTE | 2025-07-08 12:14 | CRLHL7_ITS ---
For Patients: As a result of the Century Cures Act, medical imaging exams and procedure reports are released immediately into your electronic medical record. You may view this report before your referring provider. If you have questions, please contact your health care provider. Indication: Chest pain Technique: Chest 1 view Comparison: Chest x-ray 04/07/2025 Findings/Impression: Cardiovascular and mediastinum: Heart size and vasculature are normal in caliber and appearance. Lungs and pleural space: Lungs are clear. No sign of infiltrate or mass. No sign of pleural effusion. No pneumothorax. Bones and soft tissues: No acute findings. Dictated by Tad Hernandez MD @ 07/08/2025 12:55:14 PM (Electronically Signed)
[2025-07-08 12:32] LABS: Hematocrit* 38.4 % (33.0-51.0); Hemoglobin* 12.5 gm/dL (12.0-16.0); Immature Granulocytes Abs Auto 0.03 K/uL (0.00-0.30); Immature Granulocytes Pct Auto 0.4 %; Lymphocytes Absolute Auto 1.84 K/uL (0.90-2.90); Mean Corpuscular HGB Conc 33 gm/dL (32-36); Mean Corpuscular Hemoglobin 31 pg (26-34); Mean Corpuscular Volume 94 fL (80-100); RDW Coefficient of Variation % 12.4 % (11.5-15.5); Red Blood Count* 4.07 m/uL (4.00-5.20); White Blood Count* 6.84 K/uL (4.50-11.00)
[2025-07-08 12:41] LABS: Slide Review Reflex No
[2025-07-08 12:51] LABS: Albumin* 4.3 g/dL (3.3-5.0); Chloride* 102 mmol/L (96-114); Potassium* 4.5 mmol/L (3.6-5.1); Sodium* 138 mmol/L (135-149)
[2025-07-08 12:54] LABS: Alanine Aminotransferase* 25 U/L (4-35); Alkaline Phosphatase* 121 U/L (40-150); Anion Gap 5 mEq/L (7-15); Aspartate Amino Transferase* 30 U/L (12-35); Bilirubin Total* 0.6 mg/dL (0.1-1.5); Blood Urea Nitrogen* 14 mg/dL (7-30); Calcium* 9.1 mg/dL (8.4-10.6); Carbon Dioxide* 31 mmol/L (20-32); Creatinine* 0.7 mg/dL (0.5-1.5); Est. Creatinine Clearance* 82.01; Estimated Glomerular Filt Rate 100 ml/min; Glucose* 111 mg/dL (60-115); Total Protein* 7.1 g/dL (6.0-8.3)
[2025-07-08 12:57] LABS: D Dimer Quantitative* < 0.25 ug/ml (0.00-0.50)
== END 2025-07-08 13:25 | disposition home or self-care (01) ==
PROVIDERS: Emergency Provider Internal Medicine
DX: R07.9 Chest pain, unspecified (principal)
CPT/HCPCS: 36415; 71045; 80053; 84484; 85025; 85379; 93005; 94761; 99283; 99284